=== PATIENT | female | born 1960 | race Caucasian/White ===

== ENCOUNTER 2016-12-09 19:11 | Emergency (ER) | payer OTHER ==
[2016-12-09 19:33] VITALS: BP 135/62; PULSE 68; TEMP 98.5; BMI 34.5
[2016-12-09 20:31] LABS: URINE APPEARANCE CLEAR; URINE BILIRUBIN NEGATIVE (NEGATIVE); URINE BLOOD NEGATIVE (NEGATIVE); URINE COLOR LTYELLOW; URINE GLUCOSE (UA) NEGATIVE (NEGATIVE); URINE KETONE NEGATIVE (NEGATIVE); URINE LEUK ESTERASE NEGATIVE (NEGATIVE); URINE NITRITE NEGATIVE (NEGATIVE); URINE PROTEIN NEGATIVE (NEGATIVE); URINE UROBILINOGEN NEGATIVE mg/dL (0.2-1.0)
--- NOTE | 2016-12-09 21:42 | PDOC ---
History of Present Illness - General History Source: Patient Exam Limitations: No Limitations - History of Present Illness Initial Comments: 12/09/16 21:57 Patient is a 56-year-old welsh speaking female with a history of fatty liver disease, hyperlipidemia and gastritis, who presents to the ED with worsening superpubic pain for one week. She states she has associated urinary hesitancy with minimal dysuria. Denies vaginal bleeding, discharge. Patient states she saw her OBGYN on and was put on antibiotics ( macrobid 10mg). She states the antibiotics have little to no alleviation of her symptoms. She also states she had diarrhea 2 days ago, but has resolved since. She is on her normal diet. Patient denies fever, chills, nausea, vomiting, diarrhea, hematochezia. LMP: 2015. <Mark Amin - Last Filed: 12/09/16 21:57> <Alivia Carter - Last Filed: 12/10/16 05:06> - General Chief Complaint: Urinary Problem Stated Complaint: PAIN Time Seen by Provider: 12/09/16 20:26 Past History <Mark Amin - Last Filed: 12/09/16 21:57> - Past Medical History Anemia: No Asthma: No Cancer: No Cardiac Disorders: No CVA: No COPD: No CHF: No Dementia: No Diabetes: No GI Disorders: Yes Disorders: No HTN: No Hypercholesterolemia: No Liver Disease: Yes (FATTY LIVER,GASTRITIS,RECTAL PAIN,GAS AND BLOATING) Seizures: No Thyroid Disease: No Other medical history: Tonsillectomy - Surgical History Cardiac Surgery: No Lung Surgery: No Neurologic Surgery: No - Suicide/Smoking/Psychosocial Hx Smoking History: Never smoked Have you smoked in the past 12 months: No Information on smoking cessation initiated: No Hx Alcohol Use: No Drug/Substance Use Hx: No Substance Use Type: None Hx Substance Use Treatment: No <Alivia Carter - Last Filed: 12/10/16 05:06> - Past Medical History Allergies/Adverse Reactions: Allergies Allergy/AdvReac Type Severity Reaction Status Date / Time No Known Drug Allergies Allergy Verified 12/09/16 19:29 Home Medications: Ambulatory Orders Vitamin B Complex 1 each PO DAILY 08/31/13 Vitamin E 400 unit PO DAILY 08/31/13 Naproxen [Naprosyn -] 500 mg PO BID PRN #14 tablet 10/15/15 Naproxen [Naprosyn -] 500 mg PO BID PRN #14 tablet 10/15/15 Phenazopyridine HCl [Pyridium] 2 tab PO TID #10 tablet 12/09/16 Review of Systems - Review of Systems Able to Perform ROS?: Yes Comments:: 12/09/16 21:57 GENERAL/CONSTITUTIONAL: No fever or chills. No weakness. HEAD, EYES, EARS, NOSE AND THROAT: No change in vision. No ear pain or discharge. No sore throat. CARDIOVASCULAR: No chest pain or shortness of breath. RESPIRATORY: No cough, wheezing, or hemoptysis. GASTROINTESTINAL: No nausea, vomiting, diarrhea or constipation. GENITOURINARY: + urinary hesitancy, + dysuria. + superpubic pain. No frequency. MUSCULOSKELETAL: No joint or muscle swelling or pain. No neck or back pain. SKIN: No rash NEUROLOGIC: No headache, vertigo, loss of consciousness, or change in strength/ sensation. ENDOCRINE: No increased thirst. No abnormal weight change. HEMATOLOGIC/LYMPHATIC: No anemia, easy bleeding, or history of blood clots. ALLERGIC/IMMUNOLOGIC: No hives or skin allergy. <Mark Amin - Last Filed: 12/09/16 21:57> *Physical Exam - Vital Signs Last Vital Signs Temp Pulse Resp BP Pulse Ox 98.5 F 68 18 135/62 98 12/09/16 19:29 12/09/16 19:29 12/09/16 19:29 12/09/16 19:29 12/09/16 19:29 - Physical Exam Comments: 12/09/16 21:59 GENERAL: Awake, alert, and fully oriented, in no acute distress HEAD: No signs of trauma EYES: PERRLA, EOMI, sclera anicteric, conjunctiva clear ENT: Auricles normal inspection, hearing grossly normal, nares patent, oropharynx clear without exudates. Moist mucosa NECK: Normal ROM, supple, no lymphadenopathy, JVD, or masses LUNGS: Breath sounds equal, clear to auscultation bilaterally. No wheezes, and no crackles HEART: Regular rate and rhythm, normal S1 and S2, no murmurs, rubs or gallops ABDOMEN: Superpubic tenderness. Minimal guarding. Soft, normoactive bowel sounds. No rebound. No masses EXTREMITIES: Normal range of motion, no edema. No clubbing or cyanosis. No cords, erythema, or tenderness NEUROLOGICAL: Cranial nerves II through XII grossly intact. Normal speech, normal gait SKIN: Warm, Dry, normal turgor, no rashes or lesions noted. <Mark Amin - Last Filed: 12/09/16 21:57> - Vital Signs Last Vital Signs Temp Pulse Resp BP Pulse Ox 98.5 F 68 18 135/62 98 12/09/16 19:29 12/09/16 19:29 12/09/16 19:29 12/09/16 19:29 12/09/16 19:29 <Alivia Carter - Last Filed: 12/10/16 05:06> ED Treatment Course - ADDITIONAL ORDERS Additional order review: Laboratory Results 12/09/16 12/09/16 20:22 20:17 POC Glucometer 110.15450 Urine Color Ltyellow Urine Appearance Clear Urine pH 6.0 Urine Protein Negative Urine Glucose (UA) Negative Urine Ketones Negative Urine Blood Negative Urine Nitrite Negative Urine Bilirubin Negative Urine Urobilinogen Negative 12/09/16 20:17 POC Glucometer [id number] <Mark Amin - Last Filed: 12/09/16 21:57> - ADDITIONAL ORDERS Additional order review: Laboratory Results 12/09/16 12/09/16 20:22 20:17 POC Glucometer 110.03968 Urine Color Ltyellow Urine Appearance Clear Urine pH 6.0 Urine Protein Negative Urine Glucose (UA) Negative Urine Ketones Negative Urine Blood Negative Urine Nitrite Negative Urine Bilirubin Negative Urine Urobilinogen Negative 12/09/16 20:17 POC Glucometer 110.91068 <Alivia Carter - Last Filed: 12/10/16 05:06> Medical Decision Making - Medical Decision Making 12/10/16 05:04 Pt will be admitted, as she had a syncopal episode in the home. She recently had parathyroid surgery and states that the surg went well. She is afebrile and she is able to eat. She has no signs of PE or dehydration. Pt will be observed on tele unit. <Alivia Carter - Last Filed: 12/10/16 05:06> *DC/Admit/Observation/Transfer - Attestations Scribe Attestion: 12/09/16 22:00 Documentation prepared by Mark Amin, acting as medical staff assistant for Alivia Carter MD. <Mark Amin - Last Filed: 12/09/16 21:57> - Discharge Dispostion Admit: No <Alivia Carter - Last Filed: 12/10/16 05:06> Diagnosis at time of Disposition: Dysuria - Discharge Dispostion Disposition: HOME Condition at time of disposition: Stable - Prescriptions Prescriptions: Phenazopyridine HCl [Pyridium] 2 tab PO TID #10 tablet - Referrals Referrals: STAFF,NOT ON [Primary Care Provider] - - Patient Instructions Printed Discharge Instructions: DI for Dysuria -- Adult
[2016-12-09] MEDS ORDERED: PHENAZOPYRIDINE HCL 100 MG TABLET (FP) PO ONE (21:53)
[2016-12-09] MEDS ORDERED: IBUPROFEN 600 MG TABLET (FP) PO ONE ×2 (21:54→21:57)
[2016-12-09] MEDS ORDERED: PHENAZOPYRIDINE HCL 100 MG TABLET (FP) ONE (21:56)
== END 2016-12-09 22:20 | disposition home or self-care (01) ==
LOC: JERFT 19:11
DX: R30.0 Dysuria (principal); E78.00 Pure hypercholesterolemia, unspecified; K76.0 Fatty (change of) liver, not elsewhere classified
CPT/HCPCS: 81003; 87086; 99283-25

== ENCOUNTER 2019-04-29 19:14 | Emergency (ER) | payer OTHER ==
[2019-04-29 20:09] VITALS: TEMP 97.9; BMI 30.7
--- NOTE | 2019-04-29 21:34 | PDOC ---
History of Present Illness - General Chief Complaint: Pain Stated Complaint: SENT BY PCP Time Seen by Provider: 04/29/19 21:32 Past History - Past Medical History Allergies/Adverse Reactions: Allergies Allergy/AdvReac Type Severity Reaction Status Date / Time No Known Drug Allergies Allergy Verified 04/29/19 20:09 Home Medications: Ambulatory Orders Vitamin B Complex 1 each PO DAILY 08/31/13 Vitamin E 400 unit PO DAILY 08/31/13 Naproxen [Naprosyn -] 500 mg PO BID PRN #14 tablet 10/15/15 Naproxen [Naprosyn -] 500 mg PO BID PRN #14 tablet 10/15/15 Phenazopyridine HCl [Pyridium] 2 tab PO TID #10 tablet 12/09/16 Ciprofloxacin [Cipro -] 500 mg PO Q12H 7 Days #14 tablet 04/30/19 metroNIDAZOLE [Flagyl -] 500 mg PO TID 7 Days #21 tablet 04/30/19 Anemia: No Asthma: No Cancer: No Cardiac Disorders: No CVA: No COPD: No CHF: No Dementia: No Diabetes: No GI Disorders: Yes Disorders: No HTN: No Hypercholesterolemia: No Liver Disease: Yes (FATTY LIVER,GASTRITIS,RECTAL PAIN,GAS AND BLOATING) Seizures: No Thyroid Disease: No - Surgical History Cardiac Surgery: No Lung Surgery: No Neurologic Surgery: No - Psycho Social/Smoking Cessation Hx Smoking History: Never smoked Have you smoked in the past 12 months: No Information on smoking cessation initiated: No Hx Alcohol Use: No Drug/Substance Use Hx: No Substance Use Type: None Hx Substance Use Treatment: No *Physical Exam - Vital Signs Last Vital Signs Temp Pulse Resp BP Pulse Ox 97.9 F 83 18 110/48 L 100 04/29/19 20:05 04/29/19 20:05 04/29/19 20:05 04/29/19 20:05 04/29/19 20:05 ED Treatment Course - LABORATORY CBC & Chemistry Diagram: 04/29/19 22:30 04/29/19 22:30 Medical Decision Making - Medical Decision Making 04/29/19 21:57 HPI: 58yo F hx fatty liver disease, HLD, and gastritis sent by Urgent Care for 2 days of LLQ pain, stabbing type, gradual onset, constant, worse with walking, associated with bloated feeling and urinary frequency/urgency. LBM this AM normal. Hx 1 c/s. Denies other abdominal surgeries, vaginal discharge, vaginal bleeding, vaginal irritations, hx UTIs or kidney stones. LMP 4 years ago. Denies fever, chills, fatigue, headache, dizziness, numbness/tingling, weakness , vision changes, shortness of breath, cough, chest pain, palpitations, leg swelling, blood in stool, diarrhea, constipation, nausea, vomiting, dysuria, hematuria, confusion. PCP - Jesse ROS: Constitutional: Negative for chills, fever, fatigue, diaphoresis. HENT: Negative for sore throat, rhinorrhea, congestion. Eyes: Negative for visual disturbance. Respiratory: Negative for shortness of breath, cough, and wheezing. Cardiovascular: Negative for chest pain, palpitations, and leg swelling. Gastrointestinal: Positive for LLQ pain. Negative for blood in stool, constipation, diarrhea, nausea, and vomiting. Genitourinary: Positive for urgency/frequency. Negative for dysuria, flank pain , and hematuria. Musculoskeletal: Negative for myalgias, back pain, and neck pain. Skin: Negative for rash. Neurological: Negative for light-headedness, dizziness, vertigo, syncope, weakness, numbness and headaches. Psychiatric/Behavioral: Negative for behavioral problems and confusion. PE: Gen: Alert, NAD, comfortable-appearing. HEENT: PERRL, EOMI, MMM, NCAT. No conjunctival pallor. Sclera are non-icteric. CV: Regular rate and rhythm. No murmurs, rubs, or gallops. PULM: No resp distress. CTAB, no wheezes, rales, or rhonchi. ABD: soft, +mild LLQ TTP, ND, no rebound tenderness or guarding, no CVA tenderness. PELVIC: External genitalia unremarkable. No blood seen with speculum exam. Moderate physiologic-appearing white discharge. Cervix visualized and is unremarkable (closed in appearance without any protruding material). Bimanual exam without cervical motion tenderness, adnexal tenderness, or any masses appreciated. Pain with insertion of speculum (baseline per pt). BACK: No TTP of c/t/l-spine. No step-offs or deformities. MSK: No bony deformities. 2+ pulses in all extremities. NEURO: AAOx3. PERRL. No gross CN deficits. Strength and sensation grossly intact throughout. EXTREMITIES: No cyanosis. No clubbing. No edema. No calf tenderness. PSYCH: Normal mood and thought pattern. SKIN: Warm and dry. Normal capillary refill. No rashes. No jaundice. MDM: 58yo F hx fatty liver disease, HLD, and gastritis sent by Urgent Care for 2 days of LLQ pain, stabbing type, gradual onset, constant, worse with walking, associated with bloated feeling and urinary frequency/urgency. Hemodynamically stable, afebrile, TTP LLQ. Ddx: GI pathology including diverticulitis, colitis, pancreatitis, appendicitis. Also consider renal/urinary pathology such as UTI/pyelo or kidney stone. Low concern for pelvic pathology due to benign pelvic exam and lack of vaginal bleeding or discharge. Also consider metabolic derangement, anemia, or infection. -CBC,CMP,Mg,Phos,Lipase,UA/UC -CTAP w/IV contrast -Pain management -Dispo: pending w/u 04/30/19 01:40 Labs reviewed. Notable for WBC 13, UA negative. CTAP reviewed: acute uncomplicated diverticulitis of proximal sigmoid colon Pt still has mild LLQ pain. Recommended admission but pt wants to go home. Discussed risks of going home including but not limited to perforation, abscess , sepsis, failure of PO antibiotic treatment, need for surgery, and . -IVF -1st dose cipro and flagyl Will discharge home with cipro, flagyl, and PCP f/u. Return precautions given. Pt understands all discharge instructions and all questions were answered. Discharge - Discharge Information Problems reviewed: Yes Clinical Impression/Diagnosis: Diverticulitis Condition: Stable Disposition: HOME - Admission No - Additional Discharge Information Prescriptions: Ciprofloxacin [Cipro -] 500 mg PO Q12H 7 Days #14 tablet metroNIDAZOLE [Flagyl -] 500 mg PO TID 7 Days #21 tablet - Follow up/Referral Referrals: Marilynn Hudson MD [Primary Care Provider] - - Patient Discharge Instructions Patient Printed Discharge Instructions: DI for Diverticulitis Additional Instructions: You have diverticulitis. Antibiotics are sent to your pharmacy - take as prescribed. Follow-up with your GI doctor Dr Mercedes within 72 hours. Return to the Emergency Department immediately for any new or concerning symptoms including fever, vomiting, or blood in stool. - Post Discharge Activity
--- NOTE | 2019-04-29 22:24 | PDOC ---
Attending Attestation - Resident Resident Name: MitchelfloridaSherrill - ED Attending Attestation I have performed the following: I have examined & evaluated the patient, The case was reviewed & discussed with the resident, I agree w/resident's findings & plan - HPI HPI: 04/30/19 00:51 see resident hpi - Physicial Exam PE: 04/30/19 00:51 see resident exam - Medical Decision Making 04/30/19 00:51 58-year-old female with left lower quadrant abdominal pain CT scan consistent with mild sigmoid diverticulitis without signs of abscess or perforation Patient has persistent left lower quadrant pain, patient offered admission but prefers to go home, patient understands the risks of condition worsening and resulting in perforation or abscess requiring surgery She has agreed to return if worse Will give Cipro and Flagyl p.o. as well as 1 L of IV fluid normal saline DC on Cipro and Flagyl as well with outpatient follow-up
[2019-04-29] MEDS ORDERED: ACETAMINOPHEN 1000 MG/100 ML VIAL (NON FORMULARY) IVPB ONE (22:26)
[2019-04-29] MEDS ORDERED: ACETAMINOPHEN INJECTION 100 ML IVPB ONE (22:34)
[2019-04-29 22:47] LABS: BASO % 0.5 % (0-2.0); EOS % 1.1 % (0-4.5); HEMATOCRIT 35.3 % (32.4-45.2); HEMOGLOBIN 11.5 GM/dL (10.7-15.3); LYMPH % 19.7 % (8-40); MCH 29.8 pg (25.7-33.7); MCHC 32.5 g/dl (32.0-36.0); MEAN CELL VOLUME 91.7 fl (80-96); MEAN PLT VOLUME 8.3 fl (7.5-11.1); MONO % 4.9 % (3.8-10.2); NEUT % 73.8 % (42.8-82.8); PLATELET COUNT 268 K/MM3 (134-434); RBC 3.85 M/mm3 (3.60-5.2); RDW 14.6 % (11.6-15.6)
[2019-04-29 23:12] LABS: BILIRUBIN,TOTAL 0.4 mg/dL (0.2-1); BLOOD UREA NITROGEN 14.1 mg/dL (7-18); CREATININE 0.7 mg/dL (0.55-1.3); MAGNESIUM 2.3 mg/dL (1.8-2.4); PHOSPHOROUS 4.1 mg/dL (2.5-4.9); POTASSIUM 4.2 mmol/L (3.5-5.1); TOT PROT 8.1 g/dl (6.4-8.2)
[2019-04-29 23:41] LABS: PH,URINE 5.5 (5.0-8.0); URINE APPEARANCE CLEAR; URINE BILIRUBIN NEGATIVE (NEGATIVE); URINE COLOR YELLOW; URINE GLUCOSE (UA) NEGATIVE (NEGATIVE); URINE KETONE NEGATIVE (NEGATIVE); URINE LEUK ESTERASE NEGATIVE (NEGATIVE); URINE NITRITE NEGATIVE (NEGATIVE); URINE PROTEIN NEGATIVE (NEGATIVE); URINE UROBILINOGEN 0.2 mg/dL (0.2-1.0)
[2019-04-30] MEDS ORDERED: SODIUM CHLORIDE 1,000 ML IV STA (00:52)
[2019-04-30] MEDS ORDERED: metroNIDAZOLE 250 MG TABLET PO ONE (00:57)
[2019-04-30] MEDS ORDERED: CIPROFLOXACIN 500 MG TABLET (RESTRICTED TO ID) PO ONE (00:57)
[2019-04-30] MEDS ORDERED: metroNIDAZOLE 250 MG TABLET ONE (01:10)
[2019-04-30 02:36] VITALS: BP 116/56; PULSE 82
== END 2019-04-30 02:36 | disposition home or self-care (01) ==
LOC: JER 19:14
PROC: 3E033NZ Introduction of Analgesics, Hypnotics, Sedatives into Peripheral Vein, Percutaneous Approach (ICD-10-PCS; principal; 2019-04-29)
PROC: 3E0337Z Introduction of Electrolytic and Water Balance Substance into Peripheral Vein, Percutaneous Approach (ICD-10-PCS; 2019-04-29)
DX: K57.92 Diverticulitis of intestine, part unspecified, without perforation or abscess without bleeding (principal)
CPT/HCPCS: 36415; 74177-TC; 80053; 81003; 83690; 83735; 84100; 85025; 87086; 96361; 96374; 99285-25; J0131; J7030